=== PATIENT | female | born 1980 | race Hispanic/Latino ===

== ENCOUNTER 2018-02-02 16:56 | Observation (INO) | payer MEDICAID ==
[2018-02-02] MEDS ORDERED: INFUVITE 10 ML in D5LR 1,000 ML IV ONE (18:33)
--- NOTE | 2018-02-02 18:41 | History and Physical Report ---
History of Present Illness Date of examination: 02/02/18 Date of admission: 02/02/18 17:10 Chief complaint: I'm vomiting Past History - Obstetrical History : 7 Medications and Allergies Allergies Allergy/AdvReac Type Severity Reaction Status Date / Time No Known Allergies Allergy Verified 01/05/16 14:38 Home Medications Medication Instructions Recorded Confirmed Last Taken Type Vit Calc,Iron,Folic 1 each PO DAILY 01/05/16 01/29/16 01/05/16 09:00 History [ Vitamins] 1 Dextroamphetamine/Amphetamine 30 mg PO BID 01/29/16 01/29/16 Unknown History [Adderall 30 mg Tablet] HYDROcodone/APAP 5-325 [[place] 2 each PO Q6H PRN #30 tablet 01/29/16 Unknown Rx 5-325 mg TAB] Active Meds: Active Medications Dextrose/Lactated Ringer's (D5lr) 1,000 mls @ 500 mls/hr IV DIRECT DOMITILA Stop: 02/03/18 20:59 Multivitamins/Minerals 10 ml/ (Dextrose/Lactated Ringer's) 1,010 mls @ 150 mls/ hr IV ONCE ONE Stop: 02/03/18 01:16 Metoclopramide HCl (Reglan) 10 mg IV Q6H DOMITILA Multivitamins/Iron/Calcium ( Vitamin) 1 each PO QDAY DOMITILA Ondansetron HCl (Zofran) 4 mg IV Q6H PRN PRN Reason: N/V unrelieved by Reglan Promethazine HCl (Phenergan) 25 mg [place] Q6H DOMITILA - Vital Signs Vital signs: Vital Signs Temp Pulse Resp BP Pulse Ox 99.7 F H 77 16 102/73 100 02/02/18 18:01 02/02/18 18:01 02/02/18 18:01 02/02/18 18:01 02/02/18 18:01 Temp Pulse Resp BP Pulse Ox 99.7 F H 77 16 102/73 100 02/02/18 18:01 02/02/18 18:01 02/02/18 18:01 02/02/18 18:01 02/02/18 18:01 Results All other labs normal.
[2018-02-02] MEDS: PHENERGAN PR SCH (19:13)
[2018-02-02] MEDS: REGLAN IV SCH (19:13)
[2018-02-02] MEDS: ZOFRAN IV PRN (19:14)
[2018-02-02] MEDS: D5LR 1,000 ML IV SCH ×2 (19:14→20:30)
[2018-02-02 20:00] LABS: BUN/Creatinine Ratio 33; Blood Urea Nitrogen 13 mg/dL (7-17); Calcium 8.8 mg/dL (8.4-10.2); Hemolysis Index 7
[2018-02-02] MEDS ORDERED: K-DUR PO SCH (22:00)
[2018-02-03 00:12] LABS: Amorphous Crystals,Urine Few; Bilirubin,Urine NEG (Negative); Blood,Urine NEG (Negative); Color,Urine Yellow (Yellow); Mucus,Urine FEW /HPF; Protein,Urine <15 mg/dL mg/dL (Negative); Urobilinogen,Urine < 2.0 mg/dL (<2.0)
[2018-02-03] MEDS: REGLAN IV SCH ×3 (02:06→17:38)
[2018-02-03] MEDS: PHENERGAN PR SCH ×3 (02:06→04:16)
[2018-02-03] MEDS: ZOFRAN IV PRN ×3 (02:58→17:36)
[2018-02-03 05:53] LABS: BUN/Creatinine Ratio 18; Blood Urea Nitrogen 7 mg/dL (7-17); Calcium 7.9 mg/dL (8.4-10.2); Hemolysis Index 8
[2018-02-03] MEDS ORDERED: MORPHINE IV ONE (06:15)
[2018-02-03] MEDS: D5LR 1,000 ML IV SCH ×2 (06:24→12:38)
[2018-02-03] MEDS ORDERED: PRENATAL VITAMIN PO SCH (10:00)
[2018-02-03 17:05] VITALS: BP 96/62
--- NOTE | 2018-02-03 19:27 | Progress Note ---
Assessment and Plan IUP at `14 weeks here for hyperemesis. Patient is feeling better today after iv fluids and meds. She tolerated food this evening without difficulty. Subjective - Subjective Date of service: 02/03/18 Interval history: Hyperemesis at 14 weeks with history of gastroparesis presented with intractable vomiting. Patient was also hypokalemeic. She is doing better today Patient reports: other (abdominal spasm) Objective - Vital Signs Vital Signs: Vital Signs - 12hr 02/03/18 02/03/18 02/03/18 08:20 12:07 16:33 Temperature 98.2 F 98.9 F 99.4 F Pulse Rate 65 63 62 Respiratory 16 16 16 Rate Blood Pressure 149/78 137/86 96/62 O2 Sat by Pulse 98 97 97 Oximetry - Exam Breasts: deferred Cardiovascular: Regular rate, Normal S1, Normal S2 Lungs: Clear to auscultation, Normal air movement Abdomen: Present: normal appearance, soft, normal bowel sounds Vulva: both: normal Uterus: Present: normal - Labs Labs: Abnormal Labs 02/02/18 02/03/18 19:02 04:47 Sodium 136 L Potassium 3.1 L 3.2 L Chloride 93.8 L Creatinine 0.4 L 0.4 L Glucose 116 H 126 H Calcium 7.9 L Laboratory Results - last 24 hr 02/02/18 02/02/18 02/03/18 19:02 23:50 04:47 Sodium 136 L 139 Potassium 3.1 L 3.2 L Chloride 93.8 L 100.0 Carbon Dioxide 24 25 Anion Gap 21 17 BUN 13 7 Creatinine 0.4 L 0.4 L Estimated GFR > 60 > 60 BUN/Creatinine Ratio 33 18 Glucose 116 H 126 H Calcium 8.8 7.9 L Urine Color Yellow Urine Turbidity Clear Urine pH 6.0 Ur Specific [place] 1.010 Urine Protein <15 mg/dl Urine Glucose (UA) Neg Urine Ketones Tr Urine Blood Neg Urine Nitrite Neg Urine Bilirubin Neg Urine Urobilinogen < 2.0 Ur Leukocyte Esterase Neg Urine WBC (Auto) 1.0 Urine RBC (Auto) 1.0 U Epithel Cells (Auto) 4.0 Amorphous Crystals Few Urine Mucus Few
--- NOTE | 2018-02-03 19:34 | Discharge Summary ---
Providers - Providers Date of Admission: 02/02/18 17:10 Date of discharge: 02/03/18 Attending physician: OSKAR TORRES 02/02/18 18:33 Consult to Dietitian/Nutrition [CONS] Routine Physician Instructions: Reason For Exam: Reason for Consult: hyper grav Reason for Consult: Poor oral intake Primary care physician: OSKAR TORRES Hospitalization Reason for admission: other (hyperemesis) Delivery: other Episiotomy: none Laceration: none Other procedures: none Discharge diagnosis: other (hyperemesis) Hospital course: Improved Condition at discharge: Good Disposition: [id number] TO HOME OR SELFCARE Plan - Discharge Medications Prescriptions: Cyclobenzaprine HCl [Flexeril 5 MG TAB] 5 mg PO BID PRN #60 tablet PRN Reason: Spasms Metoclopramide [Reglan] 10 mg PO TID PRN #90 tab PRN Reason: Vomiting - Provider Discharge Summary Activity: routine, no sex for 6 weeks, no heavy lifting 4 weeks, no strenuous exercise Diet: routine Instructions: routine Additional instructions: [] Smoking cessation referral if applicable(refer to patient education folder for contact #) [] Refer to [facility] Booklet Call your doctor immediately for: * Fever > 100.5 * Heavy vaginal bleeding ( >1 pad per hour) * Severe persistent headache * Shortness of breath * Reddened, hot, painful area to leg or breast * Drainage or odor from incision. * Keep incision clean and dry at all times and follow doctor's instructions regarding bathing/showering - Follow up plan Follow up: OSKAR TORRES MD [Primary Care Provider] - 7 Days
== END 2018-02-03 20:50 | disposition home or self-care (01) ==
LOC: 3A 16:56 → UNDOADMOB 16:56 → OB 17:10
PROVIDERS: ADMIT Obstetrics & Gynecology; ATTEND Obstetrics & Gynecology
DX: O21.9 Vomiting of pregnancy, unspecified (principal); Z3A.14 14 weeks gestation of pregnancy
CPT/HCPCS: 36415; 80048; 81001; 96361; 96365; 96366; 96375; 96376; G0378; G0379; J2270; J2405; J2765; J7121

== ENCOUNTER 2018-03-23 16:35 | Outpatient (CLI) | payer MEDICAID ==
[2018-03-23 16:58] VITALS: BP 141/76
[2018-03-23] MEDS ORDERED: LACTATED RINGERS 500 ML IV ONE (17:00)
[2018-03-23] MEDS ORDERED: ZOFRAN IV PRN (17:10)
== END 2018-03-23 19:00 | disposition home or self-care (01) ==
LOC: TRG 16:35
PROVIDERS: ATTEND Obstetrics & Gynecology
DX: O47.02 False labor before 37 completed weeks of gestation, second trimester (principal); O99.332 Smoking (tobacco) complicating pregnancy, second trimester; F17.210 Nicotine dependence, cigarettes, uncomplicated; Z3A.20 20 weeks gestation of pregnancy
CPT/HCPCS: 59025; 96360; J2405; J7120

== ENCOUNTER 2018-04-29 16:42 | Outpatient (CLI) | payer MEDICAID ==
[2018-04-29] MEDS ORDERED: LACTATED RINGERS 500 ML IV ONE (17:06)
[2018-04-29] MEDS ORDERED: ZOFRAN IV ONE (17:06)
[2018-04-29] MEDS ORDERED: ZOFRAN ONE (17:12)
[2018-04-29 18:04] LABS: Basophils % (Auto) 0.2 % (0.0-1.8); Hematocrit 35.2 % (30.3-42.9); Hemoglobin 11.7 gm/dl (10.1-14.3); Lymphocytes % (Auto) 7.4 % (13.4-35.0); Mean Corpuscular HGB Conc 33 % (30-34); Mean Corpuscular Hemoglobin 30 pg (28-32); Mean Corpuscular Volume 90 fl (79-97); Monocytes # (Auto) 0.5 K/mm3 (0.0-0.8); Monocytes % (Auto) 3.5 % (0.0-7.3); Platelet Count 216 K/mm3 (140-440); Red Blood Count 3.92 M/mm3 (3.65-5.03); Red Cell Distribution Width 14.8 % (13.2-15.2)
[2018-04-29 18:13] LABS: BUN/Creatinine Ratio 13; Blood Urea Nitrogen 4 mg/dL (7-17); Calcium 8.3 mg/dL (8.4-10.2); Hemolysis Index 59
[2018-04-29] MEDS ORDERED: PHENERGAN PR ONE ×2 (19:40→19:59)
[2018-04-29] MEDS ORDERED: D5LR 1,000 ML IV SCH (20:00)
[2018-04-29] MEDS ORDERED: MORPHINE IV ONE (20:22)
[2018-04-29] MEDS ORDERED: REGLAN IV ONE (20:23)
[2018-04-29 20:42] LABS: Bacteria,Urine 1+ /HPF (Negative); Bilirubin,Urine NEG (Negative); Blood,Urine NEG (Negative); Color,Urine Yellow (Yellow); Mucus,Urine FEW /HPF; Protein,Urine <15 mg/dL mg/dL (Negative); Urobilinogen,Urine < 2.0 mg/dL (<2.0)
[2018-04-29 21:25] VITALS: BP 119/67
== END 2018-04-29 21:50 | disposition home or self-care (01) ==
LOC: TRG 16:42
PROVIDERS: ATTEND Obstetrics & Gynecology
DX: O47.02 False labor before 37 completed weeks of gestation, second trimester (principal); O99.332 Smoking (tobacco) complicating pregnancy, second trimester; F17.210 Nicotine dependence, cigarettes, uncomplicated; Z3A.27 27 weeks gestation of pregnancy
CPT/HCPCS: 36415; 59025; 80048; 81001; 85025; 96360; 96361; 96374; 96375; J2270; J2405; J2765; J7120; J7121

== ENCOUNTER 2018-05-14 13:56 | Outpatient (CLI) | payer SELFPAY ==
[2018-05-14] MEDS ORDERED: LACTATED RINGERS 1,000 ML ONE ×2 (14:30→16:22)
[2018-05-14 15:50] LABS: Bilirubin,Urine NEG (Negative); Blood,Urine NEG (Negative); Color,Urine Yellow (Yellow); Mucus,Urine FEW /HPF; Urobilinogen,Urine < 2.0 mg/dL (<2.0)
[2018-05-14 15:58] LABS: Amphetamine Screen,Urine PRESUMPTIVE NEGATIVE; Benzodiazepines Screen,Urine PRESUMPTIVE NEGATIVE; Cocaine Screen,Urine PRESUMPTIVE NEGATIVE; Methadone Screen,Urine PRESUMPTIVE NEGATIVE; Opiate Screen,Urine PRESUMPTIVE NEGATIVE
[2018-05-14 16:10] VITALS: BP 128/60
[2018-05-14 16:16] LABS: Cannabinoid Screen,Urine PRESUMPTIVE POSITIVE
[2018-05-14] MEDS ORDERED: LACTATED RINGERS 1,000 ML IV ONE ×2 (16:33→16:34)
[2018-05-14] MEDS ORDERED: ZOFRAN IV ONE (16:34)
== END 2018-05-14 17:35 | disposition home or self-care (01) ==
LOC: TRG 13:56
PROVIDERS: ATTEND Obstetrics & Gynecology
DX: O47.02 False labor before 37 completed weeks of gestation, second trimester (principal); Z3A.27 27 weeks gestation of pregnancy
CPT/HCPCS: 59025; 80307; 81001; 96360; 96361; 96374; J2405; J7120

== ENCOUNTER 2018-07-04 13:46 | Outpatient (CLI) | payer MEDICAID ==
[2018-07-04] MEDS ORDERED: LACTATED RINGERS 500 ML IV ONE (13:59)
[2018-07-04 14:08] VITALS: BP 112/73
[2018-07-04 15:35] LABS: Bilirubin,Urine NEG (Negative); Blood,Urine NEG (Negative); Mucus,Urine FEW /HPF
[2018-07-04 15:36] LABS: Color,Urine Yellow (Yellow)
== END 2018-07-04 16:15 | disposition home or self-care (01) ==
LOC: TRG 13:46
PROVIDERS: ATTEND Obstetrics & Gynecology
DX: O47.03 False labor before 37 completed weeks of gestation, third trimester (principal); Z3A.35 35 weeks gestation of pregnancy; Z87.891 Personal history of nicotine dependence
CPT/HCPCS: 59025; 81001

== ENCOUNTER 2018-07-09 18:48 | Outpatient (CLI) | payer MEDICAID ==
[2018-07-09 19:07] VITALS: BP 122/77
== END 2018-07-09 20:02 | disposition home or self-care (01) ==
LOC: TRG 18:48
PROVIDERS: ATTEND Obstetrics & Gynecology
DX: O47.03 False labor before 37 completed weeks of gestation, third trimester (principal); O99.333 Smoking (tobacco) complicating pregnancy, third trimester; Z3A.35 35 weeks gestation of pregnancy
CPT/HCPCS: 59025